=== PATIENT | male | born 1970 ===

== ENCOUNTER 2025-02-14 20:10 | Outpatient (REF) | payer OTHER, SELFPAY ==
[2025-02-14 20:35] LABS: Abs Immature Grans 0.01 10^3/uL (0.0-0.06); HCT 42.0 % (40.0-50.0); HGB 14.2 g/dL (13.5-17.5); Immature Grans % 0.2 %; MCH 29.0 pg (27.0-33.0); MCHC 33.8 % (32.0-36.0); MCV 86 fL (80-95); MPV 10.2 fL (8.0-11.0); Platelet Count 217 10^3/uL (130-400); RBC 4.89 10^6/uL (4.36-5.78); RDW 12.0 % (11.8-14.1); RDW-SD 37.6 fL; WBC 6.19 10^3/uL (4.4-10.8)
[2025-02-14 22:40] LABS: ALT 22 U/L (16-63); AST 17 U/L (15-37); Albumin 4.2 g/dL (3.4-5.0); Alkaline Phosphatase 98 U/L (46-116); Anion Gap 6.6 mmol/L (3-11); BUN 26 mg/dL (7-18); Bilirubin, Total 0.9 mg/dL (0.2-1.0); CO2 29.4 mmol/L (21.0-32.0); Calcium 9.1 mg/dL (8.5-10.1); Calculated LDL 91 mg/dL (<100); Chloride 104 mmol/L (98-107); Cholesterol 174 mg/dL (<200); Estimated GFR 99.62 (mL/min/1.73m2); Folate 19.2 ng/mL (8.6-20.0); Glucose 106 mg/dL (74-106); HDL Cholesterol 68 mg/dL (>or=40); Potassium 4.5 mmol/L (3.5-5.1); Sodium 140 mmol/L (136-145); TSH 1.66 uIU/mL (0.36-3.74); Total Protein 7.3 g/dL (6.4-8.2); Triglyceride 78 mg/dL (<150); Vitamin B12 339 pg/mL (193-986)
[2025-02-15 19:53] LABS: Hemoglobin A1C 5.0 % (<5.7)
[2025-02-15 22:05] LABS: PSA, Screening 0.5 ng/mL (<=3.5)
== END 2025-02-14 20:11 | disposition home or self-care (01) ==
LOC: NCHCN 20:10
PROVIDERS: Visit Provider Family Medicine
DX: E63.9 Nutritional deficiency, unspecified (principal); R35.1 Nocturia; Z00.00 Encounter for general adult medical examination without abnormal findings
CPT/HCPCS: 80053; 80061; 84153; 82607; 82746; 83036; 84439; 84443; 85025